=== PATIENT | female | born 1935 | race Caucasian/White ===

== ENCOUNTER 2023-10-22 17:00 | Inpatient (IN) | payer MEDICARE, OTHER, SELFPAY ==
[2023-10-22] VITALS (10 sets, daily range): BP systolic 101–142; BP diastolic 48–76; BMI 30.7
--- NOTE | 2023-10-22 14:25 | ED.GENMED ---
History of Present Illness
General
Chief Complaint: Abdominal Symptoms
Source: patient and ambulance crew
Time Seen by Provider: 10/22/23 14:12
Travel History
Have you had any contact with someone who has COVID-19?: No
Do you have any symptoms of coronavirus? Fever > 100 degrees, chills, cough, shortness of breath, sore throat, loss of taste or smell, muscle aches, or headache?: No
History of Present Illness
History of Present Illness:
87-year-old female presenting to the emergency department via EMS from home after family reports she has had increased urinary incontinence over the last 4 days, over the last 48 hours patient has had persistent nausea and vomiting and diminished
p.o. intake. Patient states she is not having any pain or symptoms presently. She denies any headaches, focal weakness, abdominal pain, chest pain, shortness of breath or any other concerns. There was no reported history of altered mental status.
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 At time of arrival there was no family present
Past History
Past History
ED Past Medical History: Cancer (uterine), HTN, Hypothyroidism and Other (lumbar joe)
ED Past Surgical History: Cholecystectomy, Gynecological, Orthopedic, Tonsilectomy and Other
Social History
Tobacco: Non-smoker
Alcohol: None
Drug: None
Personal:
Living: with family (ranch home)
Review of Systems
Review of Systems
All Other Systems: ROS reviewed and negative except as documented in HPI and ROS
Phy Exam
Physical Exam
Physical Exam:
GENERAL: Alert , in no apparent distress, appears older than stated age
EYE: clear conjunctiva b/l
HEAD: NCAT
ENT: o/p clr, dry mucous membranes
CARDIAC: Regular rate and rhythm .
LUNGS: Clear breath sounds bilaterally, no acute respiratory distress, no wheezes/rales/rhonchi
ABDOMEN: Soft, without focal tenderness, no r/g, no cvat
NEUROLOGICAL: Alert and oriented to person and place but was unable to tell me the year
SKIN: Bilateral upper extremities are cold to the touch and dry, skin intact.
MUSCULOSKELETAL: No edema, well perfused.
PSYCH: Normal and appropriate interaction.
Scores
Heart Failure Risk
Heart Failure Risk Score: Not Applicable
Heart Score for Chest Pain Patients
STEMI patient?: Not applicable
Withdrawal Assessment of Alcohol
Withdrawal Assessment Completed?: Not applicable
Course
Orders/Labs/Results
Orders:
Orders
10/22/23 14:17
Electrocardiogram (*1) Urgent
Reason for Study: Abdominal Pain
EKG- Treatment ONCE
10/22/23 14:19
Straight cath- Treatment ONCE
Complete Blood Count/With Diff Urgent
Ondansetron Injectable [Zofran] 4 mg IV NOW STA
10/22/23 14:38
Basic Metabolic Panel Urgent
Lactic Acid Q4H
Comment: CANCEL 2nd LACTIC ACID IF 1st LACTIC ACID IS LESS THAN 2
Lipase Urgent
Urinalysis Reflex To Culture Urgent
Date Specimen was Collected: 10/22/23
Time Specimen was Collected: 14:28
Urine Microscopic Reflex Cult Urgent
Blood Culture Q30M
NIKOLAI Source: Blood/Venous
Specimen Description:
Urine Culture Urgent
NIKOLAI Source: U
Specimen Description:
Date Specimen was Collected: 10/22/23
Time Specimen was Collected: 14:28
10/22/23 14:54
Blood Culture Q30M
NIKOLAI Source: Blood/Venous
Specimen Description:
10/22/23 15:50
0.9% Sodium Chloride 1000 ml [Nss] 1,000 ml IV BOLUS
10/22/23 15:56
CefTRIAXone [Rocephin] 1,000 mg IV NOW STA
10/22/23 16:09
COVID-19 Antigen Urgent
Source: Nasal Swab
10/22/23 18:30
Lactic Acid Q4H
Comment: CANCEL 2nd LACTIC ACID IF 1st LACTIC ACID IS LESS THAN 2
Abnormal Lab Results
10/22/23 10/22/23
14:19 14:38
WBC 15.6 H 10^3/uL
(4.8-10.8)
RBC 3.60 L 10^6/uL
(4.20-5.40)
Hct 36.3 L %
(37.0-47.0)
MCV 100.8 H fL
(81.0-99.0)
MCH 33.3 H pg
(27.0-31.0)
Abs Immat Gran (auto) 0.1 H 10^3/uL
(0-0.05)
Absolute Neuts (auto) 13.2 H 10^3/uL
(1.4-6.5)
Absolute Lymphs (auto) 0.9 L 10^3/uL
(1.2-3.4)
Absolute Monos (auto) 0.9 H 10^3/uL
(0.1-0.6)
Immature Gran % 0.6 H %
(0-0.5)
Neutrophils % 84.6 H %
(42.2-75.2)
Lymphocytes % 5.9 L %
(20.5-51.1)
Sodium 134 L mmol/L
(135-145)
Creatinine 0.4 L mg/dL
(0.6-1.0)
Glucose 110 H mg/dl
(70-99)
Ur Occult Blood Reflex 2+ A
(Negative)
Urine Urobilinogen 2+ A
(Neg - 1+)
Leukocyte Esterase Rfl 2+ A
(Negative)
Urine WBC (Reflex) 50-60 A /HPF
(0-5)
Urine Bacteria (Reflex) Few A
(Negative)
10/22/23 14:19
10/22/23 15:09
Vital Signs
Initial and Last Documented VS:
Initial Vital Signs
Temp Pulse Resp BP Pulse Ox
98.7 F 70 16 121/55 94
10/22/23 14:12 10/22/23 14:12 10/22/23 14:12 10/22/23 14:12 10/22/23 14:12
Last Documented Vital Signs
Temp Pulse Resp BP Pulse Ox
98.7 F 74 19 108/66 94
10/22/23 14:12 10/22/23 15:30 10/22/23 15:30 10/22/23 15:30 10/22/23 15:30
MDM/Problems Addressed
Differential Diagnosis Includes:
Cystitis, pyelonephritis, bacteremia, electrolyte disturbance
MDM/Problems Addressed:
87-year-old female presenting the emergency department for evaluation of increased urinary frequency/incontinence, the last 48 hours has persistent nausea and vomiting. Patient reports no symptoms at present time. She has dry mucous membranes on
exam and appears older than stated age. She is however hemodynamically stable. Will check labs, blood cultures and lactic acid ordered. Will straight cath for urinary sample. I do anticipate admission. Zofran ordered for nausea.
*Pulse Oximetry
Patient hypoxic: no
*Critical Care Note
Total Time (30-74mins, 75-104mins- exclusive of procedures): Not Applicable
Patient Management
Discussion with other providers: Hospitalist
Escalation/DeEscalation of care consider admission/obs:
Family now present in patient's room. They state patient was diagnosed with a urinary tract infection on Tuesday by the primary care provider and patient was started on an antibiotic. They note that over the 3 days patient has gradually declined
stating her activity has been much less, nonambulatory and not eating or drinking much. Vomiting started today. Dad contacted the primary care provider who apparently did a urine culture and stated the antibiotic patient was on was sufficient.
Due to failed outpatient antibiotics with worsening symptoms will admit for IV antibiotics and monitoring. Family is agreeable with this plan. Hospitalist team is aware and accepts for continued evaluation and treatment.
ED Attending Note
-
Portions of this chart may have been created with voice recognition software.� Occasional wrong word or��sound alike� substitutions may have occurred due to the inherent limitations of voice recognition software.
Discharge Plan
Departure
Patient Disposition: Admit
Date of Disposition: 10/22/23
Time of Disposition: 15:58
Presentation/result/management discussed w/ accepting MD/DO: Hospitalist
Discharge Problem:
Acute UTI
Prescriptions:
No Action
lisinopril 20 MG tablet
20 mg PO DAILY
cetirizine 10 mg Tablet
10 mg PO DAILY
therapeutic multivitamin Tablet
1 tab PO DAILY
levothyroxine 100 mcg Tablet
100 mcg PO DAILY
escitalopram oxalate 5 mg Tablet
5 mg PO DAILY
Referrals:
UNKNOWN - PT DOES,NOT KNOW [Family Provider] -
Interventions
Interventions:
*Risk Screen - Suicide Last Done: 10/22/23 14:12
*Neglect/Abuse Screening Last Done: 10/22/23 14:12
ED- Fall Risk Assessment Last Done: 10/22/23 14:12
ND-Tiwbon-Iybpbjareh Assessment Last Done: 10/22/23 14:12
Discharge Date and Time
Print Language: SLOVAK
[2023-10-22 14:27] LABS: % Basophils 0.5 % (0-2); % Eosinophils 2.6 % (0-6); % Immature Granulocytes 0.6 % (0-0.5); % Lymphocytes 5.9 % (20.5-51.1); % Monocytes 5.8 % (1.7-9.3); % Neutrophils 84.6 % (42.2-75.2); Absolute Basophils 0.1 10^3/uL (0-0.2); Absolute Eosinophils 0.4 10^3/uL (0-0.7); Absolute Immature Granulocytes 0.1 10^3/uL (0-0.05); Absolute Lymphocytes 0.9 10^3/uL (1.2-3.4); Absolute Monocytes 0.9 10^3/uL (0.1-0.6); Absolute Neutrophils 13.2 10^3/uL (1.4-6.5); Hematocrit 36.3 % (37.0-47.0); Mean Corp Hgb Conc. 33.1 g/dL (33.0-37.0); Mean Corpuscular Hgb 33.3 pg (27.0-31.0); Mean Corpuscular Volume 100.8 fL (81.0-99.0); Mean Platelet Volume 10.1 fL (7.4-10.4); Nucleated Red Blood Cells % 0 %; Platelet Count 344 10^3/uL (130-400); Red Cell Dist. Width 13.2 % (11.5-14.5); White Blood Cell Count 15.6 10^3/uL (4.8-10.8)
[2023-10-22] MEDS: ZOFRAN 4 MG IV (14:46)
[2023-10-22 15:04] LABS: Lactic Acid 1.5 mmol/L (0.7-2.0)
[2023-10-22 15:42] LABS: Urine Albumin Negative (Neg - Trace); Urine Bilirubin Negative (Negative); Urine Character Clear (Clear); Urine Color Yellow; Urine Glucose Negative (Negative); Urine Ketone Negative (Negative); Urine Leukocyte 2+ (Negative); Urine Nitrite Negative (Negative); Urine Occult Blood 2+ (Negative); Urine Urobilinogen 2+ (Neg - 1+)
[2023-10-22 15:46] LABS: Blood Urea Nitrogen 14 mg/dl (7-17); Carbon Dioxide 28 mmol/L (22-30); Chloride 99 mmol/L (98-107); Glucose 110 mg/dl (70-99); Sodium 134 mmol/L (135-145); eGFR > 60.00
[2023-10-22 15:56] LABS: Urine Squamous Cell >30 /LPF (Few)
[2023-10-22 15:57] LABS: Urine Bacteria Few (Negative); Urine Red Blood Cell 0-2 /HPF (0-2); Urine White Cell 50-60 /HPF (0-5)
[2023-10-22] MEDS: NSS 1000 IV ×2 (16:00→18:38)
--- NOTE | 2023-10-22 16:11 | HPS.HSE ---
Family Physician
<PAMELA Casas - Last Filed: 10/22/23 16:41>
-
Family Physician: NOT KNOW UNKNOWN - PT DOES
Chief Complaint
<PAMELA Casas - Last Filed: 10/22/23 16:41>
-
Weakness, nausea, vomiting, outpatient urine culture E. coli
History of Present Illness
87-year-old female from home with increased weakness over the past few weeks then today had nausea with vomiting vomiting, with diminished p.o. intake over the last 48 hours. Her son Kamar states that they noticed that her urine was dark in color.
They took her to [facility] on Tuesday where she had a urinalysis showing pyuria she was placed on ciprofloxacin to 50 mg twice daily of which she has taken 5 pills. He was notified today by [facility] that the
urine grew E. coli. 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 She normally uses a walker to the bathroom but at night uses a pure wick. The patient denies any headaches, sore throat, fever, chills, chest pain, palpitations, shortness of breath,
abdominal pain, diarrhea, urinary symptoms. She is currently oriented to name, son Kamar but not year or place. He believes this is baseline for her although denies any diagnosis of cognitive impairment/dementia. She is weak in her lower legs and
arms on exam.
Past medical history includes pansensitive E. coli UTI 12/17/2021, hypertension, hypothyroidism, uterine cancer status post hysterectomy 1995, depression, spinal stenosis, renal calculi Hx, history of mono years ago, chronic ambulatory dysfunction
uses cane/walker at baseline, SOKAOGON, COVID-19 infection 12/17/2021 required 5 days Decadron/remdesivir.
Medical History
<PAMELA Casas - Last Filed: 10/22/23 16:41>
Past Medical History
Past Medical History: Reports Other
Additional Past Medical History:
pansensitive E. coli UTI 12/17/2021
Renal calculi Hx
Hypertension
hypothyroidism
Depression
spinal stenosis
chronic ambulatory dysfunction uses cane/walker at baseline
history of mono years ago
COVID-19 infection 12/17/2021 required 5 days Decadron/remdesivir
, SOKAOGON
uterine cancer status post hysterectomy 1995
Past Surgical History: Reports Other
Additional Past Surgical History:
Tonsillectomy 1946
Cholecystectomy 1964
Hysterectomy for uterine cancer 1995
Nonmalignant tumor resection left neck 2011
Left knee replacement 2015
Social History
Tobacco: Non-smoker
Alcohol: None
Drug: None
Personal:
Living: With Family
Employment: Retired
Family History
Family History: Not pertinent
Allergies / Home Medications
Allergies reflects when Allergies were last updated in [employer].
Home Medications with original date entered in [employer]
Allergy/Medication List:
Allergies
Allergy/AdvReac Type Severity Reaction Status Date / Time
No Known Allergies Allergy Verified 10/22/23 14:12
Home Medications
lisinopril 20 mg tablet 20 mg PO DAILY 04/10/20
cetirizine 10 mg tablet 10 mg PO DAILY 12/17/21
escitalopram oxalate 5 mg tablet 5 mg PO DAILY 12/17/21
levothyroxine 100 mcg tablet 100 mcg PO DAILY 12/17/21
therapeutic multivitamin 1 tab PO DAILY 12/17/21
Review of Systems
<PAMELA Casas - Last Filed: 10/22/23 16:41>
-
History Source: Patient and Family (Alfie Galvin at bedside)
A 12 point ROS was completed and negative except as noted: Yes
Constitutional: Reports Fatigue (Times few weeks worse over the past 48 hours); Denies Fever or Chills
EENT: Denies Sore Throat or Runny Nose
Respiratory: Denies Cough or Trouble Breathing
Cardiac: Denies Chest Pain, Diaphoresis, Palpitations or Syncope
Abdomen/GI: Reports Nausea and Vomiting; Denies Abdominal Pain, Diarrhea or Constipated
: Denies Dysuria, Frequency, Incontinence or Difficulty Voiding
Musculoskeletal: Denies Joint Pain or Edema
Skin: Denies Itching or Rash
Neurological: Reports Weakness (Bilateral upper and lower extremities); Denies Dizzy or Headache
Endocrine: Reports No Symptoms
Hematologic/Lymphatic: Reports No Symptoms
Psych: Reports Calm
Physical Exam
<PAMELA Casas - Last Filed: 10/22/23 16:41>
Vital Signs
Vital Signs
Temp Pulse Resp BP Pulse Ox
98.7 F 74 19 108/66 94
10/22/23 14:12 10/22/23 15:30 10/22/23 15:30 10/22/23 15:30 10/22/23 15:30
Physical Exam
General: Comfortable, Conversant and Obese; No Pain, Fever or Chills
HEENT: NormoCephalic, Anicteric, Moist mucous membranes, PERRLA and No Ptosis
Respiratory: Clear; No Wheezes, Rales or Rhonchi
Cardiac: S1/S2 and Regular Rhythm; No Murmur, Rub, Gallop or Peripheral Edema
Breast: Deferred by me
GI: Soft, Non Tender, Non Distended, Normal Bowel Sounds and No Hepatosplenomegaly
Genito-urinary: Deferred by me and No costovertebral tender
Musculoskeletal: No Clubbing, No Cyanosis and No Edema
Skin: Warm and Dry; No Rash
Neuro: Awake, Alert, Oriented (To name, son but not place or year), Cranial Nerves Intact and Other (Chronic hard of hearing, weakness upper extremities 3 out of 5 bilaterally, weakness lower extremities 2 out of 5 bilaterally); No Slurred Speech,
Facial Droop or Tremors
Psych: Calm
Laboratory Results
<PAMELA Casas - Last Filed: 10/22/23 16:41>
-
10/22/23 14:19
10/22/23 15:09
Laboratory Results
Lactic Acid 1.5 mmol/L (0.7-2.0) 10/22/23 14:38
Total Bilirubin Cancelled 10/22/23 15:09
AST Cancelled 10/22/23 15:09
ALT Cancelled 10/22/23 15:09
Alkaline Phosphatase Cancelled 10/22/23 15:09
Lipase Cancelled 10/22/23 15:09
Data Reviewed
<PAMELA Casas - Last Filed: 10/22/23 16:41>
-
Lab Data: Labs Reviewed by me
Impression/Plan
<PAMELA Casas - Last Filed: 10/22/23 16:41>
-
Impression/plan:
Admit to MedSurg
#Symptomatic UTI-E. coli pansensitive
#Hx history of pansensitive E. coli 12/17/2021
Completed 2.5 days of Cipro 250 mg twice daily
Had outpatient culture at PCP office grew E. coli 10/20/2023
Pyuria, WBC 15.6 with left shift 108/66, HR 74, 98.7
-Follow urine culture, blood cultures x 2, lactic acid
-Check COVID swab
-IV Rocephin
-IV NSS 80 cc/h
-PT/OT/case management eval
#Acute TME cannot rule out cognitive impairment
Will need formal eval after discharge
#HTN�benign
108/66
-Hold lisinopril 20 mg daily
#Hypothyroidism
Check TSH with free T4 reflex
Continue levothyroxine 100 mcg daily
#Chronic back pain secondary to spinal stenosis
-Chronic ambulatory dysfunction�uses cane/walker at baseline
-PT/OT eval
#Depression
-Continue Lexapro 5 mg daily
#Seasonal allergies
-Continue cetirizine 10 mg daily
#Hx COVID + 12/17/2021
Patient received 5 days of steroids, remdesivir was stopped due to rapid improvement of oxygen
#Hx uterine CA status post hysterectomy 1995
DVT prophylaxis
Subcu Lovenox
Full code per alfie Galvin at bedside
<José Miguel Patterson, DO - Last Filed: 10/22/23 17:39>
-
Impression/plan:
Admit to [facility]
#Symptomatic UTI-E. coli pansensitive
#Hx history of pansensitive E. coli 12/17/2021
Completed 2.5 days of Cipro 250 mg twice daily
Had outpatient culture at PCP office grew E. coli 10/20/2023
Pyuria, WBC 15.6 with left shift 108/66, HR 74, 98.7
-Follow urine culture, blood cultures x 2, lactic acid
-Check COVID swab
-IV Rocephin
-IV NSS 80 cc/h
-PT/OT/case management eval
#Acute TME cannot rule out cognitive impairment
Will need formal eval after discharge
#HTN�benign
108/66
-Hold lisinopril 20 mg daily
#Hypothyroidism
Check TSH with free T4 reflex
Continue levothyroxine 100 mcg daily
#Chronic back pain secondary to spinal stenosis
-Chronic ambulatory dysfunction�uses cane/walker at baseline
-PT/OT eval
#Depression
-Continue Lexapro 5 mg daily
#Seasonal allergies
-Continue cetirizine 10 mg daily
#Hx COVID + 12/17/2021
Patient received 5 days of steroids, remdesivir was stopped due to rapid improvement of oxygen
#Hx uterine CA status post hysterectomy 1995
DVT prophylaxis
Subcu Lovenox
Full code per son Kamar at bedside
Attending Note:
Patient seen/examined and discussed with SHIKHA Martin, and I agree with her note above.
Gen-Awake, alert, not completely oriented, slow to respond to questions
HEENT-NC/AT, anicteric, clear MM
Neck-supple
CV-Reg, no M
Lungs-clear
Abd-soft, NT, ND
Ext-no edema
Neuro-grossly nonfocal upper ext, symmetrically weak lower ext.
Acute TME - possibly due to infection (cystitis) vs. other. Concern for underlying cognitive impairment (dementia, etc.), will need outpatient evaluation. Admit to Med/surg.
UTI - E. Coli, pansensitive. Started Cipro 250mg BID on 10/18. Continue IV Rocephin for now.
Suspect vomiting related to UTI. No signs/symptoms of pyelonephritis or sepsis.
UA is positive for blood but only 0-2 RBC. Check CPK, rule out rhabdomyolysis.
Hyponatremia - possibly hypovolemic in setting of anorexia, acute illness, vomiting, etc. NSS IVF, labs in am.
Hypothyroidism - continue levothyroxine, check TSH.
Essential HTN -stable.
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
Chronic back pain/spinal stenosis
Hx Uterine CA
Obesity due to excess calories
Full code
Updated son at the bedside.
[2023-10-22] MEDS: ROCEPHIN 1000 MG IV (16:27)
[2023-10-22 16:40] LABS: Lipase 58 U/L (23-300)
[2023-10-22 17:06] LABS: COVID-19 Antigen Negative (Negative)
[2023-10-22] MEDS: LOVENOX 40 MG SC (18:38)
[2023-10-22] MEDS: FLUSH (NSS) 1 FLUSH IV (18:38)
[2023-10-22 19:22] LABS: Creatine Phosphokinase 37 U/L (30-135)
[2023-10-22 19:54] LABS: TSH Reflex To Free T4 7.74 uIU/ml (0.47-4.68)
[2023-10-22 20:23] LABS: Free T4 1.15 ng/dl (0.78-2.19)
[2023-10-23] MEDS: SYNTHROID 100 MCG PO (05:13)
[2023-10-23] MEDS: NSS 1000 IV ×2 (05:56→20:08)
[2023-10-23 07:25] VITALS: BP 141/69
[2023-10-23 07:56] LABS: % Basophils 0.5 % (0-2); % Eosinophils 3.6 % (0-6); % Immature Granulocytes 0.8 % (0-0.5); % Monocytes 8.1 % (1.7-9.3); Absolute Basophils 0.1 10^3/uL (0-0.2); Absolute Eosinophils 0.6 10^3/uL (0-0.7); Absolute Immature Granulocytes 0.1 10^3/uL (0-0.05); Absolute Lymphocytes 1.5 10^3/uL (1.2-3.4); Absolute Monocytes 1.4 10^3/uL (0.1-0.6); Hematocrit 31.6 % (37.0-47.0); Hemoglobin 10.3 g/dL (12.0-16.0); Mean Corp Hgb Conc. 32.6 g/dL (33.0-37.0); Mean Corpuscular Hgb 33.3 pg (27.0-31.0); Mean Corpuscular Volume 102.3 fL (81.0-99.0); Mean Platelet Volume 10.8 fL (7.4-10.4); Nucleated Red Blood Cells % 0 %; Platelet Count 335 10^3/uL (130-400); Red Blood Cell Count 3.09 10^6/uL (4.20-5.40); Red Cell Dist. Width 13.4 % (11.5-14.5); White Blood Cell Count 16.7 10^3/uL (4.8-10.8)
[2023-10-23 08:01] LABS: Blood Urea Nitrogen 14 mg/dl (7-17); Calcium 8.6 mg/dl (8.4-10.2); Carbon Dioxide 25 mmol/L (22-30); Chloride 104 mmol/L (98-107); Estimated Creatinine Clearance 69 ml/min; Glucose 98 mg/dl (70-99); Potassium 4.2 mmol/L (3.5-5.1); Sodium 136 mmol/L (135-145); eGFR > 60.00
--- NOTE | 2023-10-23 08:23 | W.PN.HOSP.TC ---
Today's Communication/Plan
-
Continue antibiotics
Await cultures
Assessment / Plan
Assessment / Plan
Gen-AAOx3, NAD
HEENT-NC, AT, anicteric, clear oral mm
Neck-supple
CV-reg, no M, +S1/S2
Lungs-clear B/L
Abd-soft, NT, ND
Ext-no edema
Musculoskeletal-no cyanosis, clubbing
Skin-warm and dry
Neuro-grossly non-focal
Psych-calm, cooperative
Acute TME - possibly due to infection (cystitis) vs. other. Concern for underlying cognitive impairment (dementia, etc.), will need outpatient evaluation.
Cognitively improved overnight, more awake and alert. Answering questions. She remembered me from the emergency room yesterday.
UTI - E. Coli, pansensitive. I reviewed outpatient cultures from October 18 in [facility]. Started Cipro 250mg BID on 10/18. Continue IV Rocephin for now. Await cultures here.
Suspect vomiting related to UTI. No signs/symptoms of pyelonephritis or sepsis.
UA is positive for blood but only 0-2 RBC, however CPK is normal.
Hyponatremia - possibly hypovolemic in setting of anorexia, acute illness, vomiting, etc. sodium improved, 136.
Acute anemia -hemoglobin 10.3 today. 12 yesterday. Suspect hemodilution from IV fluids. Monitor for now. Doubt bleeding.
Hypothyroidism - continue levothyroxine. TSH 7.7, free T4 normal. Would not change levothyroxine dose. Ensure she is taking it properly on an empty stomach apart from other meds.
Essential HTN -stable.
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
Chronic back pain/spinal stenosis
Hx Uterine CA
Obesity due to excess calories
Full code
Anticipated Discharge: Within 24 hours
Subjective/Interval History
-
Date of Service: October 23, 2023
Patient seen and examined. More awake and alert today. No complaints.
Objective Data
-
Labs:
Laboratory Results
10/23/23
06:54
WBC 16.7 H
Hgb 10.3 L
Hct 31.6 L
Plt Count 335
Sodium 136
Potassium 4.2
Chloride 104
Carbon Dioxide 25
BUN 14
Creatinine 0.4 L
Glucose 98
Calcium 8.6
Vital Signs:
Vital Signs
Temp Pulse Resp BP Pulse Ox
98.2 F 83 18 114/53 93
10/22/23 23:21 10/22/23 23:21 10/22/23 23:21 10/22/23 23:21 10/22/23 23:21
I&O
10/22/23 10/23/23 10/24/23
06:59 06:59 06:59
Intake Total 480 / 480
Balance 480 / 480
Review of Systems
-
History Source: Patient
All other systems: Reviewed and negative
[2023-10-23] MEDS: LEXAPRO 5 MG PO (08:27)
[2023-10-23] MEDS: ZYRTEC 10 MG PO (08:27)
[2023-10-23] MEDS: VISBIOME 1 CAP PO (08:27)
[2023-10-23] MEDS: DESENEX/MITRAZOL/ZEASORB TOPICAL (12:47)
--- NOTE | 2023-10-23 14:18 | CM ---
CM met with pt, son/Adalberto and his spouse bedside
Pt not able to answers any questions or identify family bedside
Pt resides in a rancher with 1 LONA
Her granddtr lives in the basement apartment
Pt has three sons (Adalberto, Ry, and Tom) are joint POAs
Three sons, along with their spouses, granddtr and private duty CG provide 24/7 care to pt in her home
She is ambulates with a upright walker and 1 person assist short distances
Pt requires assistance for all personal care and bathing tasks
Pt is currently receiving home PT/OT that was recently set up by PCP office- name unknown
PCP- Quiana Jordan
rx- [address]
Family committed to continuing to care for patient in her home
Requesting PT/OT continue to be provided by current agency on dc
Noted no additional dc needs at this time
Will need clarification on PT/OT home provider for DENNIS
Bravo/Tom arranges for all medical care for patient (m [phone])
Discharge Disposition- return home with current therapy provider and continued 24/7 care
[2023-10-23 14:40] VITALS: BP 127/53; PULSE 70
[2023-10-23 15:13] VITALS: BP 127/53; PULSE 70
[2023-10-23 15:20] VITALS: BP 142/63
[2023-10-23] MEDS: ROCEPHIN 1000 MG IV (16:05)
[2023-10-23] MEDS: STERILE WATER FOR INJECTION 10 ML IV (16:13)
[2023-10-23] MEDS: LOVENOX 40 MG SC (17:25)
[2023-10-23] MEDS: DESENEX/MITRAZOL/ZEASORB 1 APPLIC TOPICAL (21:53)
[2023-10-23 23:20] VITALS: BP 160/77
[2023-10-24] VITALS (33 sets, daily range): BP systolic 62–147; BP diastolic 39–125; BMI 31.4
[2023-10-24] MEDS: SYNTHROID 100 MCG PO (05:13)
[2023-10-24 05:47] LABS: % Basophils 0.4 % (0-2); % Eosinophils 2.7 % (0-6); % Immature Granulocytes 0.7 % (0-0.5); % Lymphocytes 7.9 % (20.5-51.1); % Monocytes 6.4 % (1.7-9.3); % Neutrophils 81.9 % (42.2-75.2); Absolute Basophils 0.1 10^3/uL (0-0.2); Absolute Eosinophils 0.5 10^3/uL (0-0.7); Absolute Immature Granulocytes 0.1 10^3/uL (0-0.05); Absolute Lymphocytes 1.4 10^3/uL (1.2-3.4); Absolute Monocytes 1.1 10^3/uL (0.1-0.6); Absolute Neutrophils 14.6 10^3/uL (1.4-6.5); Hematocrit 29.4 % (37.0-47.0); Hemoglobin 9.6 g/dL (12.0-16.0); Mean Corp Hgb Conc. 32.7 g/dL (33.0-37.0); Mean Corpuscular Hgb 33.3 pg (27.0-31.0); Mean Corpuscular Volume 102.1 fL (81.0-99.0); Mean Platelet Volume 10.4 fL (7.4-10.4); Nucleated Red Blood Cells % 0 %; Platelet Count 342 10^3/uL (130-400); Red Blood Cell Count 2.88 10^6/uL (4.20-5.40); Red Cell Dist. Width 13.2 % (11.5-14.5); White Blood Cell Count 17.8 10^3/uL (4.8-10.8)
[2023-10-24 06:04] LABS: Blood Urea Nitrogen 12 mg/dl (7-17); Calcium 8.6 mg/dl (8.4-10.2); Carbon Dioxide 27 mmol/L (22-30); Chloride 101 mmol/L (98-107); Estimated Creatinine Clearance 69 ml/min; Glucose 112 mg/dl (70-99); Potassium 4.2 mmol/L (3.5-5.1); Sodium 134 mmol/L (135-145); eGFR > 60.00
[2023-10-24] MEDS: DESENEX/MITRAZOL/ZEASORB TOPICAL (08:16)
[2023-10-24] MEDS: LEXAPRO 5 MG PO (08:20)
[2023-10-24] MEDS: ZYRTEC 10 MG PO (08:20)
[2023-10-24] MEDS: VISBIOME 1 CAP PO (08:20)
[2023-10-24 10:27] LABS: Glucose - Point of Care 151 mg/dl (70-99)
--- NOTE | 2023-10-24 10:30 | PTCARENOTE ---
Received pt this am drowsy but arousable to verbal stimuli able to hold conversation oriented to self, able to swallow pills and drink water. Upon rounds pt had coffee ground emesis on gown, pt said she got sick, pulse ox 80s on RA, placed oxygen
via nc to 6L pulse ox 92-95%. Appears pt aspirated lungs coarse with upper airway wheezing. diaphoretic, pallor temp of 100.3, tachycardic bp stable, less responsive,skin mottled, made aware, rapid response was called refer to RR sheet.
--- NOTE | 2023-10-24 11:32 | CON.INTV ---
Consultation
Consultation Request
Date/Time Consultation Requested: 10/24/23
Date/Time Consultation Performed: 10/24/23
Performing Provider: Mary
Reason for Consultation: ICU
Medical History
-
History of Present Illness:
87-year-old female with history of UTI (discharged 12/22/21), uterine cancer, obesity presenting from home with increased weakness, nausea/vomiting, diminished p.o. intake, dark urine treated for UTI as OP by PCP. She had worsening MS, admitted
10/22/23 for complicated UTI. Had been doing well since admission. This AM 10/23, RAIL CAR LOADER called on the floor for notable abrupt change in MS, increasing lethargy, new sinus tach.
CXR showing possible new left sided infiltrate vs edema. EKG with possible infarct.
She is placed on NRB for worsening hypoxemia, transferred to ICU. Family confirms she is full code.
Past Medical History
Past Medical History: Other (see list below)
Social History
Tobacco: Non-smoker
Alcohol: None
Drug: None
Family History
Family History: Reviewed & Not Pertinent
Allergies / Home Medications
Allergies
Allergy/AdvReac Type Severity Reaction Status Date / Time
No Known Allergies Allergy Verified 10/22/23 14:12
Home Medications
�Medication �Instructions �Recorded �Confirmed �Last Taken �Type
lisinopril 20 mg tablet 20 mg PO DAILY Blood Pressure 04/10/20 10/22/23 10/21/23 History
cetirizine 10 mg tablet 10 mg PO DAILY Allergies 12/17/21 10/22/23 10/21/23 History
escitalopram oxalate 5 mg tablet 5 mg PO DAILY Mental Health/Anxiety 12/17/21 10/22/23 10/21/23 History
levothyroxine 100 mcg tablet 100 mcg PO DAILY Thyroid 12/17/21 10/22/23 10/21/23 History
Lactobacil rhamnosus GG 10 billion 1 tab PO DAILY Supplement 10/22/23 10/22/23 10/21/23 History
cell-inulin 200 mg chewable tablet
([facility])
ciprofloxacin HCl 250 mg tablet 250 mg PO Q12H Infection 10/22/23 10/22/23 10/21/23 History
ipratropium bromide 21 mcg (0.03 2 spray intranasal DAILY Congestion 10/22/23 10/22/23 10/21/23 History
%) nasal spray
btebvklf-lgfilx-fdemm extract 5 4 cap PO DAILY Supplement 10/22/23 10/22/23 10/21/23 History
mg-6 mg-150 mg capsule (Fruit and
Vegetable Daily)
Review of Systems
-
Unable to Obtain full review of systems at this time due to: Acuity
Vitals / Labs / Diagnostic Testing
Vital Signs
Temp Pulse Resp BP Pulse Ox
100.3 F 113 20 117/68 95
10/24/23 11:08 10/24/23 11:08 10/24/23 11:08 10/24/23 11:08 10/24/23 11:08
Microbiology
10/22/23 14:54 Blood/Venous Blood Culture - Preliminary
No Growth in 24 hours- Final report to follow
10/22/23 14:38 Blood/Venous Blood Culture - Preliminary
No Growth in 24 hours- Final report to follow
10/22/23 14:38 Urine Urine Culture - Final
NO GROWTH
Diagnostic Testing:
Physical Exam
-
HEENT: Normocephalic, Anicteric and Moist Mucous Membranes
Cardiovascular: S1/S2 and Regular Rhythm
Respiratory: Rales and Non-Labored Respirations
GI: Soft, Non Distended and Non Tender
Neurology: Other (lethargic, somewhat arousable)
Skin: Warm and Dry
General: Comfortable and Other (NAD, obese)
Assessment
-
87-year-old female with history of UTI (discharged 12/22/21), uterine cancer, obesity presenting from home with increased weakness, nausea/vomiting, diminished p.o. intake, dark urine treated for UTI as OP by PCP. She had worsening MS, admitted
10/22/23 for complicated UTI. This AM 10/23, RAIL CAR LOADER called on the floor for notable abrupt change in MS, increasing lethargy, new sinus tach. CXR showing possible new left sided infiltrate vs edema. EKG with possible infarct. She is placed on NRB for
worsening hypoxemia, transferred to ICU. We are consulted for eval.
Acute hypoxic respiratory failure
TME
Urosepsis
Hyponatremia
Possible acute RI
CXR with L sided infiltrate vs edema
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
History of DH admission COVID-19/E Coli UTI 2021
HTN
Hypothyroidism
Uterine cancer
Obesity, BMI 30
Functional paraparesis/amb dysf uses walker
Chronic back pain/spinal stenosis
Renal calculi
Depression
Tonsillectomy 1946
Cholecystectomy 1964
Hysterectomy for uterine cancer 1995
Nonmalignant tumor resection left neck 2011
Left knee replacement 2015
Plan
+current signs of metabolic encephalopathy/lethargic
Psychiatric history noted above including depression
Denies pain at this time.
Pain/sedation: as needed, hold for MS
RASS goals: 0
New onset arrhythmia, cards eval
Hemodynamically stable, not requiring pressors.
Cardiac history reviewed--HTN
Prior ECHO reviewed indicating normal function, repeat study ordered
EKG with possible new ACS, trend trops
Add on proBNP
Oxygen needs: on NRB
ABG obtained, no CO2 retention
Prior history of lung disease: none, suspect SILVER
Supplemental O2 as indicated to maintain sats > 89%
CXR/CT reviewed indicating new L sided infiltrate vs edema, can empirically treat for possible aspiration
If not improving, may consider CTA
NPO, resume diet when able
Window Dresser recommendations
Aspiration precautions, HOB > 30 degrees
Speech therapy eval can be considered if at elevated risk
GI prophylaxis if indicated for mechanical ventilation >48 hours, prior history of GERD, stress ulcer formation in the critically ill
Creat at baseline, no history of renal disease
Void trials
Follow urine output, critical I/Os
Replete electrolytes as needed
Started on empiric antibiotics for urosepsis at admission
History of E Coli UTI
Cultures sent/pending
Blood repeat, prelim 10/21 neg
Urine no growth
MRSA neg in past 2019
Follow fever trend, WBC count
Lactate elevated from admission, 1.5 -> 4.7
continue to trend until <2
CBC stable, no signs of bleeding or coagulopathy.
DVT prophylaxis as assessed based on risk, including mechanical SCDs
Can transfuse if indicated for Hb <7, plt < 10
INR WNL
No prior h/o diabetes
Monitor accuchecks PRN/SS coverage if needed
H/o hypothyroidism, can continue on home synthroid dose
Son has confirmed full code status
We will follow
Diagnostic Data
Chest X-Ray: 10/24/23- 1. Diffuse hazy opacity over the left upper lung which may be artifactual secondary to the rotation.
2. Obscured left hemidiaphragm, probable combination of small left effusion and adjacent atelectasis/consolidation.
3. As warranted, above findings could be more completely evaluated with follow-up examination with PA and lateral projections.
12/17/21- 1. No radiographic evidence for pneumonia. 2. Mild cardiomegaly. 3. Moderate-sized hiatal hernia.
CT Scan: CHEST 05/06/21- No evidence of central pulmonary embolism. Mild cardiomegaly. Approximate 1.5 cm lesion in the right upper quadrant of the abdomen incompletely included on this study which may be exophytic from the right kidney although
cannot be confirmed.
Echo: 11/06/20- Normal left ventricular size and systolic function. No regional wall motion abnormalities are seen. LV ejection fraction is 60-65% by visual assessment. Mild concentric left ventricular hypertrophy. Mild mitral vegetation. Compared to
previous echo Apr 2018, no significant change.
PFT's:
Reports and relevant images were personally reviewed.
-----
Critical care time 80 mins -- this includes review of history, physical exam, medications, hemodynamic/ventilator parameters, laboratory data, imaging and discussion with house staff, pharmacy, respiratory therapy, integration aide, and nursing.
[2023-10-24 11:51] LABS: % Basophils 0.3 % (0-2); % Eosinophils 0.2 % (0-6); % Immature Granulocytes 0.8 % (0-0.5); % Lymphocytes 1.9 % (20.5-51.1); % Monocytes 0.3 % (1.7-9.3); % Neutrophils 96.5 % (42.2-75.2); Absolute Basophils 0.1 10^3/uL (0-0.2); Absolute Immature Granulocytes 0.1 10^3/uL (0-0.05); Absolute Lymphocytes 0.3 10^3/uL (1.2-3.4); Absolute Monocytes 0.1 10^3/uL (0.1-0.6); Absolute Neutrophils 16.9 10^3/uL (1.4-6.5); Hematocrit 34.2 % (37.0-47.0); Hemoglobin 11.2 g/dL (12.0-16.0); Mean Corp Hgb Conc. 32.7 g/dL (33.0-37.0); Mean Corpuscular Hgb 32.7 pg (27.0-31.0); Mean Platelet Volume 10.1 fL (7.4-10.4); Nucleated Red Blood Cells % 0 %; Platelet Count 359 10^3/uL (130-400); Red Blood Cell Count 3.42 10^6/uL (4.20-5.40); Red Cell Dist. Width 13.4 % (11.5-14.5); White Blood Cell Count 17.5 10^3/uL (4.8-10.8)
--- NOTE | 2023-10-24 11:51 | W.PN.HOSP.TC ---
Today's Communication/Plan
-
Transfer to ICU
Assessment / Plan
Assessment / Plan
Impression:
87 years old female admitted with altered mental status patient clinically likely multifactorial due to UTI and dehydration. Patient has been on initially oral antibiotics ciprofloxacin continues with ceftriaxone for UTI with sensitive E. coli.
She reported improved mental status 24 hours postadmission. On the morning of 10/23 patient became lethargic had episode of emesis with coffee-ground content later hypoxic requiring oxygen supplementation at 6 L. On evaluation with rapid response
patient remains lethargic with mottled skin. Additional evaluation with chest x-ray showed new left upper lobe infiltrate. Patient has been transferred to intensive care unit.
Altered mental status, TME, multifactorial.
Acute hypoxic respiratory failure
Concern for aspiration.
Concern for acute IN (abnormal EKG with ST elevation in anterior leads.
Reported episode of coffee-ground emesis.
Acute anemia
UTI with E. coli
Hyponatremia secondary to dehydration
Conditions prior to admission:
Essential hypertension
Hypothyroidism on replacement
Functional paraparesis with limited mobility.
Chronic back pain.
History of uterine carcinoma.
Suspected mild cognitive dysfunction
Plan:
Altered mental status.
Suspected acute TME secondary to UTI and dehydration.
Reported fluctuating mental status episode of lethargy on 10/[address] scan of the head
Continue close neurologic monitoring
Acute hypoxic respiratory failure
Patient had episode of nausea and emesis
Chest x-ray with new left sided infiltrate with concern for aspiration.
Check ABG.
Continue oxygen supplementation
Broaden antibiotic spectrum from ceftriaxone to Zosyn.
Aspiration precautions
Lactic acid level
N.p.o. pending speech and swallow evaluation
Abnormal EKG with ST elevations in anterior lateral leads.
No prior history of CAD.
No chest pain since admission.
Check serial troponin
Echocardiogram
Cardiology evaluation.
Consider CTA
Persistent nausea and recurrent emesis
Reported coffee-ground emesis on the morning 10/23.
Keep NPO.
IV PPI drip
Consider GI evaluation
Acute anemia hemoglobin trending down from 12-9.6 and back to 11.2. Continue monitoring trend.
UTI - E. Coli, pansensitive. Outpatient urine culture reviewed. Started Cipro 250mg BID on 10/18. Repeated urine culture on admission with no growth. Has been on ceftriaxone since admission.
Hyponatremia - possibly hypovolemic in setting of anorexia, acute illness, vomiting, etc. sodium improved, 136.
Hypothyroidism - continue levothyroxine. TSH 7.7, free T4 normal. Would not change levothyroxine dose. Ensure she is taking it properly on an empty stomach apart from other meds.
Essential HTN -stable.
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
Chronic back pain/spinal stenosis
Hx Uterine CA
Obesity due to excess calories
Close of care discussed with patient's son over the phone.
Full code
Anticipated Discharge: > 48 hours
Subjective/Interval History
-
Date of Service: October 24, 2023
Objective Data
-
Labs:
Laboratory Results
10/24/23 10/24/23 10/24/23
04:58 11:18 11:42
WBC 17.8 H Pending
Hgb 9.6 L Pending
Hct 29.4 L Pending
Plt Count 342 Pending
PT Pending
INR Pending
APTT Pending
HCO3
Sodium 134 L Pending
Potassium 4.2 Pending
Chloride 101 Pending
Carbon Dioxide 27 Pending
BUN 12 Pending
Creatinine 0.5 L Pending
Glucose 112 H Pending
Calcium 8.6 Pending
Total Bilirubin Pending
AST Pending
ALT Pending
Alkaline Phosphatase Pending
10/24/23 10/24/23
11:49 19:29
WBC
Hgb Pending
Hct
Plt Count
PT
INR
APTT
HCO3 Pending
Sodium
Potassium
Chloride
Carbon Dioxide
BUN
Creatinine
Glucose
Calcium
Total Bilirubin
AST
ALT
Alkaline Phosphatase
Vital Signs:
Vital Signs
Temp Pulse Resp BP Pulse Ox
100.3 F 113 20 117/68 95
10/24/23 11:08 10/24/23 11:08 10/24/23 11:08 10/24/23 11:08 10/24/23 11:08
I&O
10/23/23 10/24/23 10/25/23
06:59 06:59 06:59
Intake Total 720 / 720
Balance 720 / 720
Physical Exam
-
General: Well Developed and No Apparent Distress
HEENT: Normocephalic, Atraumatic and Moist Mucous Membranes
Respiratory: Clear to Auscultation
Cardiac: Regular Rhythm and S1/S2; Negative Murmur, Rub or Gallop
GI: Soft, Nontender, Nondistended and Normal Bowel Sounds; Negative Organomegaly
Rectal: Deferred by Provider
Musculoskeletal: No Clubbing, No Cyanosis and No Edema
Skin: Negative Rash
Neuro: Nonfocal/Grossly Intact
[2023-10-24 11:58] LABS: B.E. -1.7 mmol/L; HCO3 21.9 mmol/L (21-28); PCO2 33 mmHg (32-35); PO2 168 mmHg (83-108); pH 7.43 (7.35-7.45)
[2023-10-24] MEDS: TYLENOL/FEVERALL 650 MG RECTAL (12:01)
--- NOTE | 2023-10-24 12:02 | CON.CAR ---
Addendum entered and electronically signed by Alonzo Lee MD 10/24/23 17:47:
I saw and examined the patient.
The SECRETARY OFFICE CLERK's note was reviewed and I agree with the note.
Comment: Suspected aspiration. No chest pain. EKG with chronic LBBB and not enough ST elevation to call STEMI. 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 Fever and leukocytosis. Will follow troponin and check echo. Prognosis guarded.
Original Note:
Consultation
Consultation Request
Date/Time Consultation Requested: 10/24/23 1147
Date/Time Consultation Performed: 10/24/23 1200
Requesting Provider: Dr. Dumont
Performing Provider: Elva SANTIAGO for Dr. Lee
Reason for Consultation: abnormal EKG
Medical History
-
Chief Complaint: weakness, N/V, lethargy
History of Present Illness:
87 y/o female with hypertension, hypothyroidism, uterine CA, and LBBB. She was had weakness, incontinence, nausea, and vomiting at home. There was also some decreased PO intake and confusion. She was diagnosed with UTI and is being treated with ABX.
This AM, she became lethargic and had episode of vomiting, she became hypoxic and is now requiring supplemental O2. Possible infiltrate on CXR. We are consulted since EKG was concerning for ST elevation. She denies any CP.
Past Medical History
Past Medical History: Cancer, HTN, Hypothyroidism and Other (LBBB)
Social History
Tobacco: Non-Smoker (per chart)
Family History
Family History: Reviewed & Not Pertinent
Allergies / Home Medications
Allergy/AdvReac Type Severity Reaction Status Date / Time
No Known Allergies Allergy Verified 10/22/23 14:12
�Medication �Instructions �Recorded �Confirmed �Type
lisinopril 20 mg tablet 20 mg PO DAILY Blood Pressure 04/10/20 10/22/23 History
cetirizine 10 mg tablet 10 mg PO DAILY Allergies 12/17/21 10/22/23 History
escitalopram oxalate 5 mg tablet 5 mg PO DAILY Mental Health/Anxiety 12/17/21 10/22/23 History
levothyroxine 100 mcg tablet 100 mcg PO DAILY Thyroid 12/17/21 10/22/23 History
Lactobacil rhamnosus GG 10 billion 1 tab PO DAILY Supplement 10/22/23 10/22/23 History
cell-inulin 200 mg chewable tablet
([facility])
ciprofloxacin HCl 250 mg tablet 250 mg PO Q12H Infection 10/22/23 10/22/23 History
ipratropium bromide 21 mcg (0.03 2 spray intranasal DAILY Congestion 10/22/23 10/22/23 History
%) nasal spray
kqpfrnkb-jahiiw-bgbno extract 5 4 cap PO DAILY Supplement 10/22/23 10/22/23 History
mg-6 mg-150 mg capsule (Fruit and
Vegetable Daily)
Review of Systems
-
Unable to obtain full review of systems at this time due to: Other (patient lethargic)
History Source: Other (chart)
Constitutional: Fever and Other (confusion, lethargy)
Abdomen/GI: Nausea and Vomiting
: Incontinence
Neurological: Weakness
Physical Exam
Vital Signs
Temp Pulse Resp BP Pulse Ox
100.3 F 113 20 117/68 95
10/24/23 11:08 10/24/23 11:08 10/24/23 11:08 10/24/23 11:08 10/24/23 11:08
Physical Exam
General: No Apparent Distress
HEENT: Normocephalic and Anicteric
Respiratory: Non Labored Respirations and Other (on NRB)
Cardiac: Regular Rhythm
Skin: Warm and Dry
Neuro: Awake, Alert and Other (lethargic )
Impression / Plan
-
Sepsis:
-patient is acutely ill, high risk diagnosis
-patient with UTI on abx
-now possible ASP PNA as well
-continue ABX per primary team
-low BP's this AM, improved with fluid bolus
-fever 103, Tylenol given, temp improving
Abnormal EKG:
-patient with chronic LBBB. EKG this AM with ST changes which were concerning for ST elevation. However, reviewed with Dr. Lee and non-diagnostic for CT in this patient with LBBB. Patient lethargic, but denies any CP.
-obtain echo and troponins
N/V:
-patient on PPI
HTN:
-patient hypotensive as above
-hold ACEI
Data Reviewed
-
EKG: Tracing Personally Visualized and interpreted (ST 109 BPM, LBBB (ST abnormalities as noted))
Radiology: Report Reviewed by me (CXR: Diffuse hazy opacity over the left upper lung which may be artifactual secondary to the rotation. 2. Obscured left hemidiaphragm, probable combination of small left effusion and adjacent
atelectasis/consolidation.)
Medical Tests (Nuc Med, Echo etc): Report Reviewed by me (echo 11/06/20: Normal left ventricular size and systolic function. No regional wall motion abnormalities are seen. LV ejection fraction is 60-65% by visual assessment. Mild concentric left
ventricular hypertrophy. Mild MR)
Labs: Labs Reviewed by me
[2023-10-24] MEDS: NSS 250 IV (12:04)
[2023-10-24 12:05] LABS: ALT (SGPT) 74 U/L (0-35); AST (SGOT) 132 U/L (14-36); Alkaline Phosphatase 226 U/L (38-126); Blood Urea Nitrogen 12 mg/dl (7-17); Calcium 8.9 mg/dl (8.4-10.2); Carbon Dioxide 23 mmol/L (22-30); Chloride 100 mmol/L (98-107); Estimated Creatinine Clearance 69 ml/min; Glucose 123 mg/dl (70-99); Potassium 4.2 mmol/L (3.5-5.1); Sodium 134 mmol/L (135-145); Total Bilirubin 0.7 mg/dl (0.2-1.3); Total Protein 5.8 g/dl (6.3-8.2); eGFR > 60.00
[2023-10-24] MEDS: PROTONIX 100 IV ×2 (12:10→22:17)
[2023-10-24] MEDS: NSS 1000 IV ×2 (12:12→21:56)
[2023-10-24 12:13] LABS: Lactic Acid 4.7 mmol/L (0.7-2.0)
[2023-10-24 12:15] LABS: Troponin I 0.386 ng/ml
--- NOTE | 2023-10-24 12:28 | CM ---
Gudelia was admitted to on ; At time of attempted visit today I see that Gudelia has been transferred to ICU after rapid response.
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
Brayden lives in the basement apartment
Pt has three sons (Adalberto, Ry, and Tom) are joint POAs
Three sons, along with their spouses, granddtr and private duty CG provide 24/7 care to pt in her home
She is ambulates with a upright walker and 1 person assist short distances.
Pt requires assistance for all personal care and bathing tasks
Anticipate return home with prior services and much family support.
[2023-10-24] MEDS: ZOSYN 50 IV ×2 (12:39→17:55)
[2023-10-24 13:31] LABS: NT-proBNP 609 pg/ml
--- NOTE | 2023-10-24 13:31 | PTCARENOTE ---
1200 Responded to Rapid response. On arrival pt on bed on nasal canula 6L. Per pt's nurse, patient admitted with UTI, noted to vomited coffea ground emesis. patient awake,lethargic. changed to NRM due to POX 87% while on nasal canula,. STAT portable
CXR done to r/o aspiration, Stat EKG done, result demonstrated EKG changes.
Patient transfer to ICU via bed to room 3370. ST 143. Rectal temp 103.2; BP 92/62 MaP 71 via RT upper arm RR 25. 100%/NRM ; ABG, PTT, BMP, CBC, LA send to lab. NSS 250 bolus adm; Bladder scanned 35cc;
At this time : pt awake to tactile, speech unclear, lethargic. BP 90/58 MAP 69 SR 95; RR 31; POX 99%/ Nasal canula 6 L; Denies chest pain , denies nausea. SR; No edema pedal pulses palpable; Abdomen soft round. Purwic placed to measure urinal
outpuc. Skin : sacrum healed pressure ulcer foam dressing in place. Small smear brown bowel movement. RT AC peripheral line : NSS at 100/hr . RT wrist Protonix; left AC pending capped;
CT head with no contrast ECHO pending
--- NOTE | 2023-10-24 15:40 | PTCARENOTE ---
2nd set Blood culture, D-dimer, troponin, lactic acid send to lab results pending
[2023-10-24 16:15] LABS: INR 1.34; PT 16.4 Sec (11.4-14.6)
[2023-10-24 16:16] LABS: APTT 29.1 Sec (23.4-35.0)
[2023-10-24 16:20] LABS: Lactic Acid 2.8 mmol/L (0.7-2.0)
[2023-10-24 16:25] LABS: D-Dimer 8.51 ug/mlFEU (0.00-0.50)
--- NOTE | 2023-10-24 16:58 | PTCARENOTE ---
Repeat troponin 1.590 Dr Lee aware, order Troponin Q 8 hrs .
--- NOTE | 2023-10-24 16:59 | PTCARENOTE ---
patient awake, aroused to tactile, lethargic. Repeat Troponin 1.[address] Lee made aware. Repeat in 8 hrs. D-Dimer 8.51; Dr Perez aware. mid-line inserted to RT upper arm . levophed at 6/22.5 via RT upper mid line. left Fa #22
NSS at 100 and protonix . ECHO done CT head done results pending
[2023-10-24] MEDS: STERILE WATER FOR INJECTION IV (17:49)
[2023-10-24] MEDS: ASPIRIN 300 MG RECTAL (17:55)
[2023-10-24] MEDS: LOVENOX 40 MG SC (17:55)
--- NOTE | 2023-10-24 19:43 | PTCARENOTE ---
paint awake aroused disoriented to place and time. Non verbal pain assessment negative for pain . Denies chest pain. SR on a monitor. Levophed at 6mcg via RT upper mid-line . On 2L of oxygen via nasal canula . Incontinent of urine Purwick replaced.
Temp monitoring rectally. Taking for CT with contrast chest r/o PE result pending
[2023-10-24] MEDS: DESENEX/MITRAZOL/ZEASORB 1 APPLIC TOPICAL (21:57)
[2023-10-24 22:19] LABS: Hemoglobin 9.1 g/dL (12.0-16.0)
[2023-10-24 22:32] LABS: Lactic Acid 2.5 mmol/L (0.7-2.0)
[2023-10-25] VITALS (38 sets, daily range): BP systolic 32–126; BP diastolic 18–98; BMI 32.0
[2023-10-25] MEDS: ZOSYN 50 IV ×2 (00:45→06:11)
[2023-10-25] MEDS: OFIRMEV 100 IV (01:22)
[2023-10-25] MEDS: LEVOPHED 250 IV (02:10)
[2023-10-25 04:16] LABS: Hematocrit 24.9 % (37.0-47.0); Hemoglobin 8.3 g/dL (12.0-16.0); Mean Corp Hgb Conc. 33.3 g/dL (33.0-37.0); Mean Corpuscular Hgb 33.3 pg (27.0-31.0); Mean Platelet Volume 10.1 fL (7.4-10.4); Nucleated Red Blood Cells % 0 %; Platelet Count 342 10^3/uL (130-400); Red Blood Cell Count 2.49 10^6/uL (4.20-5.40); Red Cell Dist. Width 13.4 % (11.5-14.5); White Blood Cell Count 38.8 10^3/uL (4.8-10.8)
[2023-10-25 04:37] LABS: Lactic Acid 1.7 mmol/L (0.7-2.0)
[2023-10-25 04:39] LABS: Blood Urea Nitrogen 21 mg/dl (7-17); Calcium 8.1 mg/dl (8.4-10.2); Carbon Dioxide 24 mmol/L (22-30); Chloride 103 mmol/L (98-107); Estimated Creatinine Clearance 70 ml/min; Glucose 143 mg/dl (70-99); Potassium 4.1 mmol/L (3.5-5.1); Sodium 134 mmol/L (135-145); eGFR > 60.00
[2023-10-25 04:48] LABS: Absolute Neutrophils -Man Diff 34.9 10^3/uL (1.4-6.5); Band Neutrophils 11 % (0-3); Lymphocytes 6 % (20-51); Monocytes 4 % (2-9); Normal RBC Morphology Yes; Platelets Checked Yes; Segmented Neutrophils 79 % (42-75)
[2023-10-25 04:49] LABS: Total Cells Counted 100
[2023-10-25] MEDS: SYNTHROID PO (06:13)
--- NOTE | 2023-10-25 07:16 | W.PN.INTV ---
Today's Communication / Plan
Recommendations
Event this AM--respiratory code, s/p intubation
Max pressor doses, IVFs wide open
Family called to make urgent decision on code status, son wished to do everything until family comes in despite poor prognosis
Case discussed with care team/staff
Continue full efforts until family arrives
Very poor prognosis
Assessment
-
87-year-old female with history of UTI (discharged 12/22/21), uterine cancer, obesity presenting from home with increased weakness, nausea/vomiting, diminished p.o. intake, dark urine treated for UTI as OP by PCP. She had worsening MS, admitted
10/22/23 for complicated UTI. This AM 10/23, ENVELOPE FOLD OPERATOR called on the floor for notable abrupt change in MS, increasing lethargy, new sinus tach. CXR showing possible new left sided infiltrate vs edema. EKG with possible infarct. She is placed on NRB for
worsening hypoxemia, transferred to ICU. We are consulted for eval.
Acute hypoxic respiratory failure
TME
Urosepsis
Hyponatremia
Possible acute NE
CXR with L sided infiltrate vs edema
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
History of admission COVID-19/E Coli UTI 2021
HTN
Hypothyroidism
Uterine cancer
Obesity, BMI 30
Functional paraparesis/amb dysf uses walker
Chronic back pain/spinal stenosis
Renal calculi
Depression
Tonsillectomy 1946
Cholecystectomy 1964
Hysterectomy for uterine cancer 1995
Nonmalignant tumor resection left neck 2011
Left knee replacement 2015
Plan
+current signs of metabolic encephalopathy/lethargic
Psychiatric history noted above including depression
Denies pain at this time.
Pain/sedation: as needed, hold for MS
RASS goals: 0
New onset arrhythmia, cards eval
Hemodynamically stable, not requiring pressors.
Cardiac history reviewed--HTN
Prior ECHO reviewed indicating normal function, repeat study ordered with new reduced EF
EKG with possible new ACS, trend trops
proBNP--609
Oxygen needs: on NRB s/p intubation this AM--spoke to son who wanted everything done until the family got there
ABG obtained, no CO2 retention
Prior history of lung disease: none, suspect SILVER
Supplemental O2 as indicated to maintain sats > 89%
CXR/CT reviewed indicating new L sided infiltrate vs edema, can empirically treat for possible aspiration
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
New onset hematemesis likely from tumor in stomach
Cannot place NGT
NPO
Milanese Knitting Machine Operator recommendations
Aspiration precautions, HOB > 30 degrees
On PPI gtt
Creat at baseline, no history of renal disease
Void trials
Follow urine output, critical I/Os
Replete electrolytes as needed
Started on empiric antibiotics for urosepsis at admission, less likely given CT findings
History of E Coli UTI
Cultures sent/pending
Blood repeat, prelim 10/21 neg
Urine no growth
MRSA neg in past 2019
Follow fever trend, WBC count
Lactate elevated from admission, 1.5 -> 4.7
continue to trend until <2
CBC now declining following UGIB
DVT prophylaxis as assessed based on risk, including mechanical SCDs
Can transfuse if indicated for Hb <7, plt < 10
INR WNL
No prior h/o diabetes
Monitor accuchecks PRN/SS coverage if needed
H/o hypothyroidism, can continue on home synthroid dose
Son has confirmed full code status--Called family to discuss exceedingly poor prognosis
They wished to keep going until they arrived to then w/d care
Diagnostic Data
Chest X-Ray: 10/24/23- 1. Diffuse hazy opacity over the left upper lung which may be artifactual secondary to the rotation.
2. Obscured left hemidiaphragm, probable combination of small left effusion and adjacent atelectasis/consolidation.
3. As warranted, above findings could be more completely evaluated with follow-up examination with PA and lateral projections.
12/17/21- 1. No radiographic evidence for pneumonia. 2. Mild cardiomegaly. 3. Moderate-sized hiatal hernia.
CT Scan: CHEST 05/06/21- No evidence of central pulmonary embolism. Mild cardiomegaly. Approximate 1.5 cm lesion in the right upper quadrant of the abdomen incompletely included on this study which may be exophytic from the right kidney although
cannot be confirmed.
Echo: 11/06/20- Normal left ventricular size and systolic function. No regional wall motion abnormalities are seen. LV ejection fraction is 60-65% by visual assessment. Mild concentric left ventricular hypertrophy. Mild mitral vegetation. Compared to
previous echo Apr 2018, no significant change.
PFT's:
Reports and relevant images were personally reviewed.
-----
Critical care time 100 mins -- this includes review of history, physical exam, medications, hemodynamic/ventilator parameters, laboratory data, imaging and discussion with house staff, pharmacy, respiratory therapy, fire lieutenant marine, and nursing.
Subjective Dataa
Subjective Data
Date of Service:
Date of Service: October 25, 2023
Chief Complaint: Assembler Rubber Footwear Follow Up
Subjective:
this am, patient had respiratory code--bp low 30s placed on max dose pressors
vomiting BRB
s/p intubation, agonal breathing
blood suctioned from back of throat
minimally responsive but able to repeatedly state 'let me go'
Objective Data
Data Reviewed
Vital Signs / I&O / Oxygen:
Vital Signs
Temp Pulse Resp BP Pulse Ox
99.3 F 76 14 95/51 99
10/25/23 03:56 10/25/23 05:45 10/25/23 05:45 10/25/23 05:30 10/25/23 05:45
Intake and Output
10/24/23 10/25/23 10/26/23
06:59 06:59 06:59
Intake Total 720 / 720 2592.5 / 2592.5
Output Total 1000 / 1000
Balance 720 / 720 1592.5 / 1592.5
SaO2 99
Nasal Cannula flow liters per 2
minute
Physical Exam
General: Respiratory Distress (moderate) and Poor Appetite
HEENT: Normocephalic and Anicteric
Labs/Micro/Reports
Lab Data
10/25/23 04:05
Laboratory Results
10/24/23 10/24/23 10/24/23
11:42 11:49 15:48
PT Cancelled 16.4 H
INR Cancelled 1.34
APTT Cancelled 29.1
pH 7.43
pCO2 33
pO2 168 H
HCO3 21.9
O2 Delivery Level
Microbiology
10/22/23 14:54 Blood/Venous Blood Culture - Preliminary
No Growth in 48 hours- Final report to follow
10/22/23 14:38 Blood/Venous Blood Culture - Preliminary
No Growth in 48 hours- Final report to follow
10/22/23 14:38 Urine Urine Culture - Final
NO GROWTH
[2023-10-25] MEDS: VISBIOME PO (07:17)
[2023-10-25] MEDS: LEXAPRO PO (07:17)
[2023-10-25] MEDS: NSS 1000 IV (07:51)
[2023-10-25] MEDS: PROTONIX 100 IV (07:52)
[2023-10-25] MEDS: DESENEX/MITRAZOL/ZEASORB 1 APPLIC TOPICAL (07:52)
[2023-10-25] MEDS: ASPIRIN 300 MG RECTAL (07:52)
--- NOTE | 2023-10-25 08:00 | PTCARENOTE ---
Received pt @ change of shift, drowsy/ awakens to verbal stim. Ox2, required reorientation to time. SR w 1st degree AVB/BBB on monitor. Levo gtt infusing via R midline to keep MAP >65, see flow sheet. LE cold/pale/poor cap refill; + doppler pedal
pulses. SpO2 96% on 2LNC. Diminished breath sounds throughout. +BS, abd round/obese. NPO status maintained. Inc of dark brown/black BM this AM. Inc of bladder, pureiwck in place draining yellow urine. Pt. repositioned per protocol. IVF and
protonix gtt infusing via L FA PIV. Bed alarm active. Instructed on how to report care concerns, call krishna in reach.
--- NOTE | 2023-10-25 08:50 | PTCARENOTE ---
Pt. w episode of nausea followed BRB vomit. News Specialist, Dr. Hernandez, made aware. H&H drawn and sent to lab. Pt noted to be more tachycardic w HR 100's, tachypneic into 30's, and hypotensive, levo gtt remains on and titrated to keep MAP >65.
Vinnikov to bedside, aware of vomit and assessment findings s/p vomit.
[2023-10-25 09:04] LABS: Hematocrit 24.5 % (37.0-47.0); Hemoglobin 7.9 g/dL (12.0-16.0)
[2023-10-25] MEDS: PITRESSIN 100 IV (09:04)
[2023-10-25] MEDS: ZOFRAN 4 MG IV (09:04)
--- NOTE | 2023-10-25 09:39 | W.PN.HOSP.TC ---
Today's Communication/Plan
-
Vent support.
Hemodynamic support
IV antibiotics.
Ongoing goals of care discussions while family leaning towards comfort
Total Critical Care Time__45___ minutes. I was immediately available to the patient and staff. I personally examined, reviewed labs, diagnostic images/reports, interpretations, treatment plans, discussed patient care with other providers and
family or caregivers (if patient is unable to make decisions), entered orders as appropriate and documented the medical record.
Assessment / Plan
Assessment / Plan
Impression:
87 years old female admitted with altered mental status patient clinically likely multifactorial due to UTI and dehydration. Patient has been on initially oral antibiotics ciprofloxacin continues with ceftriaxone for UTI with sensitive E. coli.
She reported improved mental status 24 hours postadmission. On the morning of 10/23 patient became lethargic had episode of emesis with coffee-ground content later hypoxic requiring oxygen supplementation at 6 L. On evaluation with rapid response
patient remains lethargic with mottled skin. Additional evaluation with chest x-ray showed new left upper lobe infiltrate. Patient has been transferred to intensive care unit.
Altered mental status, TME, multifactorial.
Acute hypoxic respiratory failure/VDRF
� Intubated on 10/24
Sepsis.
Aspiration pneumonia
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
Septic shock with hypotension not responding to IV fluids and requiring multiple pressors
Acute SC secondary to demand ischemia type II
Recurrent episodes of coffee-ground emesis.
Anemia of acute blood loss
Recent UTI with E. coli
Hyponatremia secondary to dehydration
Conditions prior to admission:
Essential hypertension
Hypothyroidism on replacement
Functional paraparesis with limited mobility.
Chronic back pain.
History of uterine carcinoma.
Suspected mild cognitive dysfunction
Plan:
Rapidly deteriorating hemodynamic and respiratory status.
Intubated for airway protection on 10/24.
Tachycardic and hypotensive with addition of 2 pressors Levophed and epinephrine
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
Ongoing discussions with family over the phone in regards to goals of care. Family asked for respiratory and hemodynamic support until rest of the family gathers at the bedside
Remains on broad-spectrum antibiotics and IV fluids.
Anticipated Discharge: > 48 hours
Subjective/Interval History
-
Date of Service: October 25, 2023
Objective Data
-
Labs:
Laboratory Results
10/24/23 10/25/23 10/25/23
22:12 03:29 04:05
WBC 38.8 H
Hgb 9.1 L Cancelled 8.3 L
Hct 24.9 L
Plt Count 342
Sodium 134 L
Potassium 4.1
Chloride 103
Carbon Dioxide 24
BUN 21 H
Creatinine 0.6
Glucose 143 H
Calcium 8.1 L
10/25/23 10/25/23
08:45 11:29
WBC
Hgb 7.9 L Pending
Hct 24.5 L
Plt Count
Sodium
Potassium
Chloride
Carbon Dioxide
BUN
Creatinine
Glucose
Calcium
Vital Signs:
Vital Signs
Temp Pulse Resp BP Pulse Ox
98.6 F 78 16 114/87 98
10/25/23 07:20 10/25/23 08:15 10/25/23 08:15 10/25/23 08:00 10/25/23 08:15
I&O
10/24/23 10/25/23 10/26/23
06:59 06:59 06:59
Intake Total 720 / 720 2592.5 / 2725.0 265.0 / 265.0
Output Total 1000 / 1000
Balance 720 / 720 1592.5 / 1725.0 265.0 / 265.0
Physical Exam
-
General: Well Developed and No Apparent Distress
HEENT: Normocephalic, Atraumatic and Moist Mucous Membranes
Respiratory: Clear to Auscultation
Cardiac: Regular Rhythm and S1/S2; Negative Murmur, Rub or Gallop
GI: Soft, Nontender, Nondistended and Normal Bowel Sounds; Negative Organomegaly
Rectal: Deferred by Provider
Musculoskeletal: No Clubbing, No Cyanosis and No Edema
Skin: Negative Rash
Neuro: Nonfocal/Grossly Intact
--- NOTE | 2023-10-25 09:42 | W.PN.ANESINT ---
Anesthesia Intubation Note
- Intubation Note
Intubation Note:
Diagnosis: respiratory failure
Blade: mac 3
Tube Size: 7.0
Depth: 23 at lip
Side Taped: secured by respiratory
Drugs Used: 20mg propofol, 80 mg succ
Grade View: 1
EtCO2 Present: yes
Atraumatic: yes
Attempts: 1
Insertion Start and Stop Time: 929
SaO2 Pre: unable to obtain
SaO2 Post: unable to obtain
Glidescope Used: yes
Other Airway Adjustments:
Pre-Oxygenated: yes
Portable Chest X-Ray:
RSI: yes
Suctioned: yes
Bilateral Breath Sounds Confirmed: yes
Vent Settings: adjusted by respiratory therapy
Settings per ___Attending Physician
--- NOTE | 2023-10-25 09:47 | PTCARENOTE ---
Pt. became hemodynamically unstable, agonal breathing. +femoral pulse. RT bagged pt to maintain airway. Dr. Hernandez to beside, updated on hemodynamics. Dr. Dumont on phone w family regarding goals of care, plan to remain full code at this time.
Intubated by anesthesia @ 0991 #7.0, 22 lip R side on settings AC14/500/.100/+5. X-ray to bedside to verify ett placement. + femoral pulse remains. Levo gtt titrated to keep MAP >65; vaso initiated- see flow sheet. Family arriving to bedside @
this time; Skein Inspector to bedside as well.
[2023-10-25] MEDS: ADRENALIN 250 IV (10:07)
--- NOTE | 2023-10-25 11:00 | PTCARENOTE ---
pt remains intubated on max triple pressors-see flow sheet. Mx family members to bedside. Dr. Dumont confirmed DNR status with family, new order received. Awaiting more family to arrive @ bedside. Emotional support given, care ongoing.
--- NOTE | 2023-10-25 11:29 | CHAP ---
Emotional and spiritual support provided to family gathering. Stories and prayers shared, prayer blanket given. Will follow.
[2023-10-25] MEDS: ATIVAN 1 MG IV (11:55)
[2023-10-25] MEDS: MORPHINE SULFATE 2 MG IV (11:55)
[2023-10-25] MEDS: NSS (PRESERVATIVE FREE) 0.5 ML IV (11:55)
--- NOTE | 2023-10-25 12:01 | CM ---
CM following re: discharge planning.
Discussed in Rounds, reviewed pt's chart, met with pt. family at bedside. per Rounds meeting, pt became hemodynamically unstable this morning, intubated at 9:30 a.m, remains intubated on max triple pressors, DNR status confirmed by MD with family,
continue supportive care, goals of care discussion, family leaning towards comfort care.
D/c plan: uncertain at this time, possible comfort care.
CM will follow with discharge plan updates as hospitalization progresses. CM is available for emotional support.
--- NOTE | 2023-10-25 12:10 | PTCARENOTE ---
All family to beside, reported to this RN they were ready to withdraw care. Dr. Dumont made aware and further orders received for comfort medications- see MAR, comfort measures, and terminal extubation. Pressors off @ 1200- see flow sheet. S/P
IV comfort medical scientific liaison, pt terminally extubated @ 1205. Family @ bedside.
--- NOTE | 2023-10-25 12:31 | PN.CDI ---
CDI
- -
CDI:
Physician Documentation Request
Admit Date: 10/22/23 17:00
Dear Doctor Tim,
Please review the following and provide your response in the progress notes.
Clinical Indicators:
Pt admitted with ECOLI UTI /Pt went into septic shock aspiration pneumonia/Acute Hypoxic Respiratory failure now intubated on 3 pressors
Lactic acid levels are as below/ Pt did get IVFs
10/24/23 10/24/23 10/24/23
11:18 15:48 22:12
Lactic Acid 4.7 H* 2.8 H 2.5 H
10/25/23
04:05
Lactic Acid 1.7
Based on the above, could you clarify in the progress notes, the appropriate diagnosis, if significant, that supports the above abnormalities and additional evaluation, monitoring and/or treatment rendered:
Lactic Acidosis
Abnormal lab value only
Other
Use of terms such as suspected, likely, concern for, or probable (associated with a specific diagnosis that is being evaluated, monitored, or treated as if it exists) are acceptable and can be coded in the inpatient setting, when documented at the
time of discharge.
Thank you,
Teresa Acevedo RN
CDI Specialist
[facility]
Please use your independent medical judgment in providing your response.
--- NOTE | 2023-10-25 13:00 | PTCARENOTE ---
Pt. noted to have no spontaneous breaths or heart tones. Pt. pronounced @ [address] Dumont. GOL notified. Post mortem care provided. PIVs and R midline removed, VAT aware. [place] [facility] [place]
--- NOTE | 2023-10-25 13:23 | W.PN.DEATH ---
Pronouncement of
-
Called to see patient to pronounce.
No spontaneous heart tones or respirations noted.
Patient not responsive to verbal stimuli.
Patient is pronounced .
Time of : 12:30
Date of : 10/25/23
Cause of : Sepsis, Aspiration pneumonia
Family Notified: Yes
== END 2023-10-25 12:30 | disposition expired | DRG 689 ==
LOC: ICU 17:00
PROVIDERS: Clinical Nurse Specialist Family Health; Nurse Practitioner; Physician Assistant Medical; ADMITTING PHYSICIAN Hospitalist; ATTENDING PHYSICIAN Internal Medicine; CONSULT PHYSICIAN Internal Medicine Cardiovascular Disease; EMERGENCY PHYSICIAN Emergency Medicine; OTHER PHYSICIAN Internal Medicine
PROC: 5A1935Z Respiratory Ventilation, Less than 24 Consecutive Hours (ICD-10-PCS; 2023-10-25)
DX: N39.0 Urinary tract infection, site not specified (principal); A41.9 Sepsis, unspecified organism; G92.8 Other toxic encephalopathy; J96.01 Acute respiratory failure with hypoxia; J69.0 Pneumonitis due to inhalation of food and vomit; R65.21 Severe sepsis with septic shock; I21.A1 Myocardial infarction type 2; F03.93 Unspecified dementia, unspecified severity, with mood disturbance; E87.1 Hypo-osmolality and hyponatremia; D62 Acute posthemorrhagic anemia; E87.20 Acidosis, unspecified; K92.2 Gastrointestinal hemorrhage, unspecified; Z11.52 Encounter for screening for COVID-19; I10 Essential (primary) hypertension; E03.9 Hypothyroidism, unspecified; G89.29 Other chronic pain; N20.0 Calculus of kidney; F32.A Depression, unspecified; J30.2 Other seasonal allergic rhinitis; E66.9 Obesity, unspecified; Z68.30 Body mass index [BMI] 30.0-30.9, adult
CPT/HCPCS: 36600; 51701; 70450; 71045; 71275; 80048; 80053; 81003; 81015; 82550; 82805; 82962; 83605; 83690; 83735; 83880; 84439; 84443; 84484; 85014; 85018; 85025; 85379; 85610; 85730; 87040; 87077; 87086; 87205; 87811; 93005; 93306; 96361; 96374; 96375; 97163; 97167; 99285; Q9967